=== PATIENT | female | born 1955 | race Caucasian/White ===

== ENCOUNTER 2017-07-18 20:51 | Inpatient (IN) | payer MEDICARE ==
[2017-07-18 22:01] LABS: ADD MAN DIFF? NO
[2017-07-18 22:03] LABS: BASOPHILS % 0.2 % (0.0-2.0); EOSINOPHILS % 0.1 % (0.0-7.0); HEMATOCRIT 35.4 % (37.0-47.0); HEMOGLOBIN 12.2 g/dl (12.0-16.0); LYMPHOCYTES # 0.7 10^3/ul (0.8-2.9); LYMPHOCYTES % 4.7 % (15.0-51.0); MEAN CORPUSCULAR HEMOGLOBIN 32.5 pg (29.0-33.0); MEAN CORPUSCULAR HGB CONC 34.5 g/dl (32.0-37.0); MEAN CORPUSCULAR VOLUME 94.4 fl (82.0-101.0); MEAN PLATELET VOLUME 9.9 fl (7.4-10.4); MONOCYTE # 1.1 10^3/ul (0.3-0.9); MONOCYTES % 7.7 % (0.0-11.0); NEUTROPHIL # 12.3 10^3/ul (1.6-7.5); NEUTROPHILS % 86.8 % (39.0-77.0); PLATELET COUNT 377 10^3/UL (140-415); RED BLOOD COUNT 3.75 10^6/ul (4.20-5.40); RED CELL DISTRIBUTION WIDTH 14.7 % (11.5-14.5)
[2017-07-18 22:03] LABS: WHITE BLOOD COUNT 14.2 10^3/ul (4.8-10.8)
[2017-07-18 22:21] LABS: BLOOD UREA NITROGEN 44 mg/dl (7-20); CALCIUM 8.1 mg/dl (8.4-10.2); CARBON DIOXIDE 28 mmol/L (21-31); CREATININE 1.18 mg/dl (0.44-1.00); GLUCOSE 113 mg/dl (70-220); SODIUM 140 mmol/L (135-144)
[2017-07-18 22:22] LABS: ANION GAP 18 (8-16); CHLORIDE 96 mmol/L (97-110)
[2017-07-18 22:23] LABS: POTASSIUM 2.3 mmol/L (3.5-5.1)
[2017-07-18 22:33] LABS: B-TYPE NATRIURETIC PEPTIDE 720 PG/ML (0-125); TROPONIN-I 0.085 ng/ml (0.00-0.12)
[2017-07-18] MEDS: POTASSIUM CHLORIDE (SR) 20 MEQ TAB PO (22:54)
[2017-07-18] MEDS ORDERED: POTASSIUM CHLORIDE 50 ML IVPB (23:00)
[2017-07-18] MEDS ORDERED: ACETAMINOPHEN 325 MG TAB PO (23:30)
[2017-07-18] MEDS ORDERED: ONDANSETRON 4 MG INJ IV (23:30)
[2017-07-18] MEDS: POTASSIUM CHLORIDE 30 MEQ in DEXTROSE 5% 250 ML IV (23:32)
[2017-07-19 13:41] LABS: ADD MAN DIFF? NO
[2017-07-19 13:43] LABS: BASOPHILS % 0.1 % (0.0-2.0); LYMPHOCYTES # 0.7 10^3/ul (0.8-2.9); LYMPHOCYTES % 6.7 % (15.0-51.0); MEAN CORPUSCULAR HEMOGLOBIN 32.4 pg (29.0-33.0); MEAN CORPUSCULAR HGB CONC 34.2 g/dl (32.0-37.0); MEAN CORPUSCULAR VOLUME 94.8 fl (82.0-101.0); MONOCYTES % 10.4 % (0.0-11.0); NEUTROPHIL # 8.1 10^3/ul (1.6-7.5); NEUTROPHILS % 82.4 % (39.0-77.0); PLATELET COUNT 381 10^3/UL (140-415); RED BLOOD COUNT 4.01 10^6/ul (4.20-5.40); RED CELL DISTRIBUTION WIDTH 14.8 % (11.5-14.5)
[2017-07-19 13:43] LABS: WHITE BLOOD COUNT 9.8 10^3/ul (4.8-10.8)
[2017-07-19 14:07] LABS: LACTIC ACID 2.1 mmol/L (0.5-2.0)
[2017-07-19] MEDS: DEXTROSE 5%-0.45% NACL 1,000 ML IV (14:31)
[2017-07-19] MEDS: BENAZEPRIL 10 MG TAB PO (20:44)
[2017-07-20] MEDS: BENAZEPRIL 10 MG TAB PO ×2 (00:50→09:40)
[2017-07-20 00:54] LABS: CREATINE KINASE 61 IU/L (23-200)
[2017-07-20 01:07] LABS: CK INDEX 4.3; CK-MB 2.63 ng/ml (0.0-2.4); TROPONIN-I 0.076 ng/ml (0.00-0.12)
[2017-07-20] MEDS ORDERED: PENDING SANTYL ORDER FOR WOUND CARE XX (02:00)
[2017-07-20] MEDS: hydrALAzine 20 MG INJ IV ×2 (04:09→16:09)
[2017-07-20 06:49] LABS: ADD MAN DIFF? NO
[2017-07-20 06:54] LABS: WHITE BLOOD COUNT 7.7 10^3/ul (4.8-10.8)
[2017-07-20 06:54] LABS: BASOPHILS % 0.3 % (0.0-2.0); HEMOGLOBIN 12.5 g/dl (12.0-16.0); LYMPHOCYTES # 0.7 10^3/ul (0.8-2.9); LYMPHOCYTES % 8.5 % (15.0-51.0); MEAN CORPUSCULAR HEMOGLOBIN 32.7 pg (29.0-33.0); MEAN CORPUSCULAR HGB CONC 34.7 g/dl (32.0-37.0); MEAN CORPUSCULAR VOLUME 94.2 fl (82.0-101.0); MEAN PLATELET VOLUME 10.1 fl (7.4-10.4); MONOCYTE # 0.8 10^3/ul (0.3-0.9); MONOCYTES % 10.8 % (0.0-11.0); NEUTROPHIL # 6.1 10^3/ul (1.6-7.5); NEUTROPHILS % 80.1 % (39.0-77.0); PLATELET COUNT 347 10^3/UL (140-415); RED BLOOD COUNT 3.82 10^6/ul (4.20-5.40)
[2017-07-20] MEDS: DEXTROSE 5%-0.45% NACL 1,000 ML IV ×2 (07:00→10:52)
[2017-07-20 07:09] LABS: ALANINE AMINOTRANSFERASE 57 IU/L (13-69); ALBUMIN 2.7 g/dl (3.3-4.9); ALBUMIN/GLOBULIN RATIO 0.84; ALKALINE PHOSPHATASE 352 IU/L (42-121); ANION GAP 14 (8-16); ASPARTATE AMINO TRANSFERASE 56 IU/L (15-46); BILIRUBIN,TOTAL 0.4 mg/dl (0.2-1.3); BLOOD UREA NITROGEN 31 mg/dl (7-20); CALCIUM 8.3 mg/dl (8.4-10.2); CARBON DIOXIDE 28 mmol/L (21-31); CHLORIDE 106 mmol/L (97-110); CREATININE 0.84 mg/dl (0.44-1.00); GLUCOSE 106 mg/dl (70-220); POTASSIUM 3.4 mmol/L (3.5-5.1); SODIUM 145 mmol/L (135-144); TOTAL PROTEIN 5.9 g/dl (6.1-8.1)
[2017-07-20 07:11] LABS: CHOL/HDL RATIO 4.8 RATIO; HDL CHOLESTEROL 23 mg/dl (35-98); LDL CHOLESTEROL,CALCULATED 71 mg/dl; TRIGLYCERIDES 87 mg/dl (0-149)
[2017-07-20 07:11] LABS: CHOLESTEROL 111 mg/dl (100-200)
[2017-07-20 07:15] LABS: CREATINE KINASE 60 IU/L (23-200); INR 1.15; PROTIME 14.9 Sec (11.9-14.9); PT RATIO 1.2
[2017-07-20 07:16] LABS: PARTIAL THROMBOPLASTIN TIME 42.1 Sec (25.0-35.0)
[2017-07-20 07:24] LABS: HEMOGLOBIN A1C 4.9 % (0-5.9)
[2017-07-20 07:42] LABS: CK INDEX 4.7; CK-MB 2.79 ng/ml (0.0-2.4); TROPONIN-I 0.077 ng/ml (0.00-0.12)
[2017-07-20 12:36] LABS: CREATINE KINASE 60 IU/L (23-200)
[2017-07-20 12:49] LABS: CK INDEX 4.1; CK-MB 2.43 ng/ml (0.0-2.4); TROPONIN-I 0.068 ng/ml (0.00-0.12)
[2017-07-20] MEDS: BENAZEPRIL 40 MG TAB PO (20:57)
[2017-07-20] MEDS: METOPROLOL 25 MG TAB PO (20:58)
[2017-07-20] MEDS: METOPROLOL 5 MG INJ IV (23:42)
[2017-07-21] MEDS: DEXTROSE 5%-0.45% NACL 1,000 ML IV ×2 (02:33→15:00)
[2017-07-21 08:07] LABS: ADD MAN DIFF? NO
[2017-07-21 08:12] LABS: BASOPHILS % 0.2 % (0.0-2.0); EOSINOPHILS % 0.1 % (0.0-7.0); HEMATOCRIT 38.7 % (37.0-47.0); HEMOGLOBIN 13.4 g/dl (12.0-16.0); LYMPHOCYTES # 0.8 10^3/ul (0.8-2.9); LYMPHOCYTES % 8.8 % (15.0-51.0); MEAN CORPUSCULAR HEMOGLOBIN 32.6 pg (29.0-33.0); MEAN CORPUSCULAR HGB CONC 34.6 g/dl (32.0-37.0); MEAN CORPUSCULAR VOLUME 94.2 fl (82.0-101.0); MEAN PLATELET VOLUME 10.1 fl (7.4-10.4); MONOCYTE # 1.3 10^3/ul (0.3-0.9); MONOCYTES % 13.9 % (0.0-11.0); NEUTROPHIL # 6.9 10^3/ul (1.6-7.5); NEUTROPHILS % 76.6 % (39.0-77.0); PLATELET COUNT 348 10^3/UL (140-415); RED BLOOD COUNT 4.11 10^6/ul (4.20-5.40); RED CELL DISTRIBUTION WIDTH 14.9 % (11.5-14.5)
[2017-07-21 08:29] LABS: ANION GAP 15 (8-16); BLOOD UREA NITROGEN 29 mg/dl (7-20); CALCIUM 8.3 mg/dl (8.4-10.2); CARBON DIOXIDE 25 mmol/L (21-31); CHLORIDE 112 mmol/L (97-110); CREATININE 0.96 mg/dl (0.44-1.00); GLUCOSE 95 mg/dl (70-220); POTASSIUM 3.2 mmol/L (3.5-5.1); SODIUM 149 mmol/L (135-144)
[2017-07-21] MEDS: BENAZEPRIL 40 MG TAB PO ×2 (09:46→21:38)
[2017-07-21] MEDS: ASPIRIN 81 MG TAB PO (09:46)
[2017-07-21] MEDS: METOPROLOL 25 MG TAB PO ×2 (09:47→21:38)
[2017-07-21] MEDS: DEXTROSE 5% 1,000 ML IV (17:46)
[2017-07-21] MEDS: POTASSIUM CHLORIDE 20 MEQ POWDER FOR ORAL SOLN NGT (21:39)
[2017-07-21] MEDS: LEVETIRACETAM 500 MG TAB PO (21:42)
[2017-07-21] MEDS: CARBAMAZEPINE 200 MG TAB PO (22:44)
[2017-07-21] MEDS: morphine 2 MG INJ IV (23:19)
[2017-07-22] MEDS: DEXTROSE 5% 250 ML IV ×5 (04:18→21:10)
[2017-07-22] MEDS: ASPIRIN 81 MG TAB PO (09:19)
[2017-07-22] MEDS: BENAZEPRIL 40 MG TAB PO ×2 (09:19→21:13)
[2017-07-22] MEDS: CARBAMAZEPINE 200 MG TAB PO ×3 (09:19→21:12)
[2017-07-22] MEDS: LEVETIRACETAM 500 MG TAB PO ×2 (09:19→21:12)
[2017-07-22] MEDS: METOPROLOL 25 MG TAB PO ×2 (09:20→21:13)
[2017-07-22 09:48] LABS: ANION GAP 13 (8-16); BLOOD UREA NITROGEN 33 mg/dl (7-20); CALCIUM 7.8 mg/dl (8.4-10.2); CARBON DIOXIDE 24 mmol/L (21-31); CHLORIDE 104 mmol/L (97-110); CREATININE 1.08 mg/dl (0.44-1.00); GLUCOSE 88 mg/dl (70-220); POTASSIUM 3.2 mmol/L (3.5-5.1); SODIUM 138 mmol/L (135-144)
[2017-07-22 09:54] LABS: CARBAMAZEPINE (TEGRETOL) 9.8 ug/ml (8.0-12.0)
[2017-07-22] MEDS: POTASSIUM CHLORIDE 20 MEQ POWDER FOR ORAL SOLN PO (16:58)
[2017-07-22] MEDS ORDERED: VANCOMYCIN IV PER PHARMACY XX (17:00)
[2017-07-22] MEDS: VANCOMYCIN 1 GM 250 ML IVPB (18:03)
[2017-07-22] MEDS: LEVOFLOXACIN 500 MG TAB PO (18:03)
[2017-07-23] MEDS: DEXTROSE 5% 250 ML IV ×3 (01:20→09:08)
[2017-07-23] MEDS: LEVOFLOXACIN 500 MG TAB PO (06:03)
[2017-07-23] MEDS: ASPIRIN 81 MG TAB PO (09:07)
[2017-07-23] MEDS: CARBAMAZEPINE 200 MG TAB PO ×3 (09:07→20:13)
[2017-07-23] MEDS: LEVETIRACETAM 500 MG TAB PO ×2 (09:07→20:09)
[2017-07-23] MEDS: BENAZEPRIL 40 MG TAB PO ×2 (09:08→20:13)
[2017-07-23] MEDS: METOPROLOL 25 MG TAB PO ×2 (09:08→20:10)
[2017-07-23 09:20] LABS: ADD MAN DIFF? NO
[2017-07-23 09:28] LABS: BASOPHILS % 0.3 % (0.0-2.0); EOSINOPHILS % 0.5 % (0.0-7.0); HEMOGLOBIN 12.2 g/dl (12.0-16.0); LYMPHOCYTES # 0.9 10^3/ul (0.8-2.9); LYMPHOCYTES % 14.6 % (15.0-51.0); MEAN CORPUSCULAR HEMOGLOBIN 32.1 pg (29.0-33.0); MEAN CORPUSCULAR HGB CONC 33.9 g/dl (32.0-37.0); MEAN CORPUSCULAR VOLUME 94.7 fl (82.0-101.0); MEAN PLATELET VOLUME 10.3 fl (7.4-10.4); MONOCYTE # 0.8 10^3/ul (0.3-0.9); MONOCYTES % 13.9 % (0.0-11.0); NEUTROPHIL # 4.2 10^3/ul (1.6-7.5); PLATELET COUNT 271 10^3/UL (140-415); RED CELL DISTRIBUTION WIDTH 14.5 % (11.5-14.5)
[2017-07-23 09:45] LABS: ANION GAP 14 (8-16); BLOOD UREA NITROGEN 35 mg/dl (7-20); CALCIUM 7.7 mg/dl (8.4-10.2); CARBON DIOXIDE 26 mmol/L (21-31); CHLORIDE 105 mmol/L (97-110); CREATININE 1.21 mg/dl (0.44-1.00); GLUCOSE 79 mg/dl (70-220); POTASSIUM 4.3 mmol/L (3.5-5.1); SODIUM 141 mmol/L (135-144)
[2017-07-23 12:03] LABS: ADD MAN DIFF? NO
[2017-07-23 12:09] LABS: INR 1.16; PT RATIO 1.2
[2017-07-23 12:10] LABS: PARTIAL THROMBOPLASTIN TIME 35.4 Sec (25.0-35.0)
[2017-07-23 12:11] LABS: ALANINE AMINOTRANSFERASE 34 IU/L (13-69); ALBUMIN 2.7 g/dl (3.3-4.9); ALBUMIN/GLOBULIN RATIO 0.96; ALKALINE PHOSPHATASE 291 IU/L (42-121); ANION GAP 16 (8-16); ASPARTATE AMINO TRANSFERASE 24 IU/L (15-46); BILIRUBIN,INDIRECT 0.2 mg/dl (0-1.1); BILIRUBIN,TOTAL 0.2 mg/dl (0.2-1.3); BLOOD UREA NITROGEN 33 mg/dl (7-20); CALCIUM 8.2 mg/dl (8.4-10.2); CARBON DIOXIDE 27 mmol/L (21-31); CHLORIDE 104 mmol/L (97-110); CREATININE 1.22 mg/dl (0.44-1.00); GLUCOSE 92 mg/dl (70-220); HDL CHOLESTEROL 20 mg/dl (35-98); POTASSIUM 4.6 mmol/L (3.5-5.1); SODIUM 142 mmol/L (135-144); TOTAL PROTEIN 5.5 g/dl (6.1-8.1); TRIGLYCERIDES 112 mg/dl (0-149)
[2017-07-23 12:19] LABS: CHOL/HDL RATIO 4.7 RATIO; LDL CHOLESTEROL,CALCULATED 53 mg/dl
[2017-07-23 12:21] LABS: BASOPHILS % 0.4 % (0.0-2.0); EOSINOPHILS % 0.3 % (0.0-7.0); HEMATOCRIT 36.7 % (37.0-47.0); HEMOGLOBIN 12.5 g/dl (12.0-16.0); LYMPHOCYTES % 14.4 % (15.0-51.0); MEAN CORPUSCULAR HEMOGLOBIN 32.5 pg (29.0-33.0); MEAN CORPUSCULAR HGB CONC 34.1 g/dl (32.0-37.0); MEAN CORPUSCULAR VOLUME 95.3 fl (82.0-101.0); MEAN PLATELET VOLUME 10.3 fl (7.4-10.4); MONOCYTES % 14.5 % (0.0-11.0); NEUTROPHIL # 4.9 10^3/ul (1.6-7.5); PLATELET COUNT 307 10^3/UL (140-415); RED BLOOD COUNT 3.85 10^6/ul (4.20-5.40); RED CELL DISTRIBUTION WIDTH 14.5 % (11.5-14.5)
[2017-07-23 12:30] LABS: CHOLESTEROL 95 mg/dl (100-200)
[2017-07-23 15:15] LABS: ADD MAN DIFF? NO
[2017-07-23 15:17] LABS: WHITE BLOOD COUNT 7.5 10^3/ul (4.8-10.8)
[2017-07-23 15:17] LABS: BASOPHILS % 0.4 % (0.0-2.0); EOSINOPHILS % 0.3 % (0.0-7.0); HEMATOCRIT 36.6 % (37.0-47.0); HEMOGLOBIN 12.7 g/dl (12.0-16.0); LYMPHOCYTES % 13.1 % (15.0-51.0); MEAN CORPUSCULAR HEMOGLOBIN 32.6 pg (29.0-33.0); MEAN CORPUSCULAR HGB CONC 34.7 g/dl (32.0-37.0); MEAN CORPUSCULAR VOLUME 93.8 fl (82.0-101.0); MEAN PLATELET VOLUME 10.2 fl (7.4-10.4); MONOCYTE # 0.9 10^3/ul (0.3-0.9); MONOCYTES % 11.9 % (0.0-11.0); NEUTROPHIL # 5.6 10^3/ul (1.6-7.5); NEUTROPHILS % 73.8 % (39.0-77.0); PLATELET COUNT 291 10^3/UL (140-415); RED CELL DISTRIBUTION WIDTH 14.6 % (11.5-14.5)
[2017-07-23] MEDS: VANCOMYCIN 750 MG in DEXTROSE 5% 150 ML IVPB (18:11)
[2017-07-23] MEDS: ONDANSETRON 4 MG INJ IV (22:18)
[2017-07-24] MEDS ORDERED: COLLAGENASE 30 GM TUBE TOP (00:30)
[2017-07-24 07:46] LABS: ADD MAN DIFF? NO
[2017-07-24 07:50] LABS: BASOPHILS % 0.3 % (0.0-2.0); EOSINOPHILS % 0.2 % (0.0-7.0); HEMATOCRIT 35.2 % (37.0-47.0); LYMPHOCYTES % 15.4 % (15.0-51.0); MEAN CORPUSCULAR HGB CONC 34.1 g/dl (32.0-37.0); MEAN CORPUSCULAR VOLUME 93.9 fl (82.0-101.0); MEAN PLATELET VOLUME 10.3 fl (7.4-10.4); MONOCYTE # 0.8 10^3/ul (0.3-0.9); MONOCYTES % 12.2 % (0.0-11.0); NEUTROPHIL # 4.7 10^3/ul (1.6-7.5); NEUTROPHILS % 71.1 % (39.0-77.0); PLATELET COUNT 289 10^3/UL (140-415); RED BLOOD COUNT 3.75 10^6/ul (4.20-5.40); RED CELL DISTRIBUTION WIDTH 14.4 % (11.5-14.5)
[2017-07-24 07:50] LABS: WHITE BLOOD COUNT 6.6 10^3/ul (4.8-10.8)
[2017-07-24 08:23] LABS: CARBAMAZEPINE (TEGRETOL) 8.9 ug/ml (8.0-12.0)
[2017-07-24 08:27] LABS: ANION GAP 15 (8-16); BLOOD UREA NITROGEN 34 mg/dl (7-20); CALCIUM 8.4 mg/dl (8.4-10.2); CARBON DIOXIDE 26 mmol/L (21-31); CHLORIDE 106 mmol/L (97-110); CREATININE 1.09 mg/dl (0.44-1.00); GLUCOSE 86 mg/dl (70-220); POTASSIUM 4.4 mmol/L (3.5-5.1); SODIUM 143 mmol/L (135-144)
[2017-07-24] MEDS: LEVETIRACETAM 500 MG TAB PO ×2 (08:46→20:11)
[2017-07-24] MEDS: CARBAMAZEPINE 200 MG TAB PO ×3 (08:46→20:11)
[2017-07-24] MEDS: COLLAGENASE 30 GM TUBE TOP (08:46)
[2017-07-24] MEDS: ASPIRIN 81 MG TAB PO (08:47)
[2017-07-24] MEDS: BENAZEPRIL 40 MG TAB PO ×2 (08:47→20:11)
[2017-07-24] MEDS: METOPROLOL 25 MG TAB PO ×2 (08:48→20:11)
[2017-07-24] MEDS: SOD CHLORIDE 0.9% 100 ML (11:12)
[2017-07-24] MEDS: IODIXANOL LOCM 100 ML BTL (11:13)
[2017-07-24] MEDS: FLUCONAZOLE 100 MG TAB PO (17:13)
[2017-07-24] MEDS: VANCOMYCIN 750 MG in DEXTROSE 5% 150 ML IVPB (17:19)
[2017-07-25] MEDS: LEVOFLOXACIN 500 MG TAB PO (05:29)
[2017-07-25 07:00] LABS: ADD MAN DIFF? NO
[2017-07-25 07:03] LABS: BASOPHILS % 0.3 % (0.0-2.0); EOSINOPHILS % 0.5 % (0.0-7.0); HEMOGLOBIN 11.5 g/dl (12.0-16.0); LYMPHOCYTES # 0.8 10^3/ul (0.8-2.9); MEAN CORPUSCULAR HEMOGLOBIN 32.2 pg (29.0-33.0); MEAN CORPUSCULAR HGB CONC 34.8 g/dl (32.0-37.0); MEAN CORPUSCULAR VOLUME 92.4 fl (82.0-101.0); MEAN PLATELET VOLUME 10.2 fl (7.4-10.4); MONOCYTE # 0.7 10^3/ul (0.3-0.9); MONOCYTES % 11.4 % (0.0-11.0); NEUTROPHIL # 4.4 10^3/ul (1.6-7.5); NEUTROPHILS % 73.3 % (39.0-77.0); PLATELET COUNT 280 10^3/UL (140-415); RED BLOOD COUNT 3.57 10^6/ul (4.20-5.40); RED CELL DISTRIBUTION WIDTH 14.2 % (11.5-14.5)
[2017-07-25 07:03] LABS: WHITE BLOOD COUNT 5.9 10^3/ul (4.8-10.8)
[2017-07-25 07:22] LABS: ANION GAP 15 (8-16); BLOOD UREA NITROGEN 25 mg/dl (7-20); CARBON DIOXIDE 27 mmol/L (21-31); CHLORIDE 105 mmol/L (97-110); CREATININE 0.88 mg/dl (0.44-1.00); GLUCOSE 87 mg/dl (70-220); POTASSIUM 4.2 mmol/L (3.5-5.1); SODIUM 143 mmol/L (135-144)
[2017-07-25] MEDS: FLUCONAZOLE 100 MG TAB PO (08:45)
[2017-07-25] MEDS: ASPIRIN 81 MG TAB PO (08:45)
[2017-07-25] MEDS: METOPROLOL 25 MG TAB PO ×2 (08:45→21:02)
[2017-07-25] MEDS: LEVETIRACETAM 500 MG TAB PO ×2 (08:45→21:02)
[2017-07-25] MEDS: BENAZEPRIL 40 MG TAB PO ×2 (08:46→21:02)
[2017-07-25] MEDS: COLLAGENASE 30 GM TUBE TOP (08:46)
[2017-07-25] MEDS: CARBAMAZEPINE 200 MG TAB PO ×3 (08:46→21:02)
[2017-07-25] MEDS: VANCOMYCIN 750 MG in DEXTROSE 5% 150 ML IVPB (18:13)
[2017-07-26 06:28] LABS: ANION GAP 11 (8-16); BLOOD UREA NITROGEN 16 mg/dl (7-20); CALCIUM 7.7 mg/dl (8.4-10.2); CARBON DIOXIDE 29 mmol/L (21-31); CHLORIDE 105 mmol/L (97-110); GLUCOSE 86 mg/dl (70-220); POTASSIUM 3.6 mmol/L (3.5-5.1); SODIUM 141 mmol/L (135-144)
[2017-07-26] MEDS: ASPIRIN 81 MG TAB PO (08:38)
[2017-07-26] MEDS: LEVETIRACETAM 500 MG TAB PO ×2 (08:39→20:41)
[2017-07-26] MEDS: METOPROLOL 25 MG TAB PO ×2 (08:39→20:42)
[2017-07-26] MEDS: CARBAMAZEPINE 200 MG TAB PO ×3 (08:40→20:41)
[2017-07-26] MEDS: FLUCONAZOLE 100 MG TAB PO (08:40)
[2017-07-26] MEDS: BENAZEPRIL 40 MG TAB PO ×2 (08:40→20:41)
[2017-07-26] MEDS: COLLAGENASE 30 GM TUBE TOP (08:41)
[2017-07-26] MEDS: VANCOMYCIN 1 GM 250 ML IVPB (16:55)
[2017-07-27] MEDS: LEVOFLOXACIN 500 MG TAB PO (05:44)
[2017-07-27] MEDS: LEVETIRACETAM 500 MG TAB PO ×2 (08:50→21:58)
[2017-07-27] MEDS: FLUCONAZOLE 100 MG TAB PO (08:50)
[2017-07-27] MEDS: CARBAMAZEPINE 200 MG TAB PO ×3 (08:50→21:58)
[2017-07-27] MEDS: METOPROLOL 25 MG TAB PO ×2 (08:50→21:58)
[2017-07-27] MEDS: BENAZEPRIL 40 MG TAB PO ×2 (08:51→21:57)
[2017-07-27] MEDS: COLLAGENASE 30 GM TUBE TOP (08:51)
[2017-07-27] MEDS: ASPIRIN 81 MG TAB PO (08:52)
[2017-07-27 08:58] LABS: ADD MAN DIFF? NO
[2017-07-27 09:09] LABS: BASOPHILS % 0.4 % (0.0-2.0); EOSINOPHILS # 0.1 10^3/ul (0.0-0.5); EOSINOPHILS % 0.9 % (0.0-7.0); HEMATOCRIT 31.3 % (37.0-47.0); HEMOGLOBIN 10.9 g/dl (12.0-16.0); LYMPHOCYTES % 19.3 % (15.0-51.0); MEAN CORPUSCULAR HEMOGLOBIN 32.6 pg (29.0-33.0); MEAN CORPUSCULAR HGB CONC 34.8 g/dl (32.0-37.0); MEAN CORPUSCULAR VOLUME 93.7 fl (82.0-101.0); MEAN PLATELET VOLUME 10.4 fl (7.4-10.4); MONOCYTE # 0.6 10^3/ul (0.3-0.9); MONOCYTES % 11.1 % (0.0-11.0); NEUTROPHIL # 3.6 10^3/ul (1.6-7.5); NEUTROPHILS % 67.7 % (39.0-77.0); PLATELET COUNT 268 10^3/UL (140-415); RED BLOOD COUNT 3.34 10^6/ul (4.20-5.40); RED CELL DISTRIBUTION WIDTH 14.5 % (11.5-14.5)
[2017-07-27 09:09] LABS: WHITE BLOOD COUNT 5.3 10^3/ul (4.8-10.8)
[2017-07-27 09:32] LABS: ANION GAP 14 (8-16); BLOOD UREA NITROGEN 12 mg/dl (7-20); CALCIUM 7.8 mg/dl (8.4-10.2); CARBON DIOXIDE 29 mmol/L (21-31); CHLORIDE 102 mmol/L (97-110); CREATININE 0.79 mg/dl (0.44-1.00); GLUCOSE 87 mg/dl (70-220); POTASSIUM 3.7 mmol/L (3.5-5.1); SODIUM 141 mmol/L (135-144)
[2017-07-27] MEDS: AMOXICILLIN 500 MG CAP PO (21:58)
[2017-07-28] MEDS: AMOXICILLIN 500 MG CAP PO ×3 (06:35→21:39)
[2017-07-28] MEDS: ASPIRIN 81 MG TAB PO (09:56)
[2017-07-28] MEDS: METOPROLOL 25 MG TAB PO ×2 (09:57→21:40)
[2017-07-28] MEDS: LEVETIRACETAM 500 MG TAB PO ×2 (09:57→21:39)
[2017-07-28] MEDS: FLUCONAZOLE 100 MG TAB PO (09:57)
[2017-07-28] MEDS: BENAZEPRIL 40 MG TAB PO ×2 (09:57→21:39)
[2017-07-28] MEDS: CARBAMAZEPINE 200 MG TAB PO ×3 (09:57→21:39)
[2017-07-28] MEDS: COLLAGENASE 30 GM TUBE TOP (09:58)
[2017-07-28] MEDS: morphine LIQ (10 MG/5 ML) CUP PO (21:53)
[2017-07-29] MEDS: AMOXICILLIN 500 MG CAP PO ×3 (06:21→21:38)
[2017-07-29 07:33] LABS: ADD MAN DIFF? NO
[2017-07-29 07:46] LABS: BASOPHILS % 0.4 % (0.0-2.0); EOSINOPHILS # 0.1 10^3/ul (0.0-0.5); EOSINOPHILS % 0.9 % (0.0-7.0); HEMATOCRIT 29.1 % (37.0-47.0); LYMPHOCYTES # 1.1 10^3/ul (0.8-2.9); LYMPHOCYTES % 15.8 % (15.0-51.0); MEAN CORPUSCULAR HEMOGLOBIN 32.2 pg (29.0-33.0); MEAN CORPUSCULAR HGB CONC 34.4 g/dl (32.0-37.0); MEAN CORPUSCULAR VOLUME 93.6 fl (82.0-101.0); MEAN PLATELET VOLUME 10.6 fl (7.4-10.4); MONOCYTE # 0.6 10^3/ul (0.3-0.9); MONOCYTES % 8.6 % (0.0-11.0); NEUTROPHILS % 73.7 % (39.0-77.0); PLATELET COUNT 277 10^3/UL (140-415); RED BLOOD COUNT 3.11 10^6/ul (4.20-5.40); RED CELL DISTRIBUTION WIDTH 14.3 % (11.5-14.5)
[2017-07-29 07:46] LABS: WHITE BLOOD COUNT 6.8 10^3/ul (4.8-10.8)
[2017-07-29 08:05] LABS: ANION GAP 11 (8-16); BLOOD UREA NITROGEN 10 mg/dl (7-20); CALCIUM 7.7 mg/dl (8.4-10.2); CARBON DIOXIDE 30 mmol/L (21-31); CHLORIDE 99 mmol/L (97-110); CREATININE 0.62 mg/dl (0.44-1.00); GLUCOSE 88 mg/dl (70-220); POTASSIUM 3.7 mmol/L (3.5-5.1); SODIUM 136 mmol/L (135-144)
[2017-07-29] MEDS: ASPIRIN 81 MG TAB PO (08:24)
[2017-07-29] MEDS: BENAZEPRIL 40 MG TAB PO ×2 (08:24→21:39)
[2017-07-29] MEDS: FLUCONAZOLE 100 MG TAB PO (08:24)
[2017-07-29] MEDS: LEVETIRACETAM 500 MG TAB PO ×2 (08:25→21:40)
[2017-07-29] MEDS: METOPROLOL 25 MG TAB PO ×2 (08:25→21:40)
[2017-07-29] MEDS: CARBAMAZEPINE 200 MG TAB PO ×3 (08:25→21:38)
[2017-07-29] MEDS: COLLAGENASE 30 GM TUBE TOP (08:26)
[2017-07-29] MEDS: DOCUSATE SODIUM 100 MG CAP PO (21:38)
[2017-07-29] MEDS: morphine LIQ (10 MG/5 ML) CUP PO (22:51)
[2017-07-30] MEDS: AMOXICILLIN 500 MG CAP PO ×3 (06:48→21:10)
[2017-07-30] MEDS: ASPIRIN 81 MG TAB PO (08:17)
[2017-07-30] MEDS: FLUCONAZOLE 100 MG TAB PO (08:17)
[2017-07-30] MEDS: METOPROLOL 25 MG TAB PO ×2 (08:17→21:12)
[2017-07-30] MEDS: CARBAMAZEPINE 200 MG TAB PO ×3 (08:17→21:10)
[2017-07-30] MEDS: BENAZEPRIL 40 MG TAB PO ×2 (08:18→21:11)
[2017-07-30] MEDS: LEVETIRACETAM 500 MG TAB PO ×2 (08:18→21:11)
[2017-07-30] MEDS: DOCUSATE SODIUM 100 MG CAP PO ×2 (08:18→21:10)
[2017-07-30] MEDS: COLLAGENASE 30 GM TUBE TOP (08:19)
[2017-07-30 08:47] LABS: ADD MAN DIFF? NO
[2017-07-30 08:52] LABS: BASOPHILS % 0.3 % (0.0-2.0); EOSINOPHILS % 0.5 % (0.0-7.0); HEMATOCRIT 32.1 % (37.0-47.0); LYMPHOCYTES # 0.9 10^3/ul (0.8-2.9); LYMPHOCYTES % 12.1 % (15.0-51.0); MEAN CORPUSCULAR HEMOGLOBIN 32.2 pg (29.0-33.0); MEAN CORPUSCULAR HGB CONC 34.3 g/dl (32.0-37.0); MEAN CORPUSCULAR VOLUME 93.9 fl (82.0-101.0); MEAN PLATELET VOLUME 9.9 fl (7.4-10.4); MONOCYTE # 0.6 10^3/ul (0.3-0.9); MONOCYTES % 8.5 % (0.0-11.0); NEUTROPHIL # 5.7 10^3/ul (1.6-7.5); NEUTROPHILS % 77.7 % (39.0-77.0); PLATELET COUNT 310 10^3/UL (140-415); RED BLOOD COUNT 3.42 10^6/ul (4.20-5.40); RED CELL DISTRIBUTION WIDTH 14.1 % (11.5-14.5)
[2017-07-30 08:52] LABS: WHITE BLOOD COUNT 7.4 10^3/ul (4.8-10.8)
[2017-07-30 09:15] LABS: ANION GAP 12 (8-16); BLOOD UREA NITROGEN 8 mg/dl (7-20); CALCIUM 8.1 mg/dl (8.4-10.2); CARBON DIOXIDE 31 mmol/L (21-31); CHLORIDE 95 mmol/L (97-110); CREATININE 0.58 mg/dl (0.44-1.00); GLUCOSE 86 mg/dl (70-220); POTASSIUM 3.7 mmol/L (3.5-5.1); SODIUM 134 mmol/L (135-144)
[2017-07-30] MEDS: REGADENOSON 0.4 MG/5 ML SYG (13:59)
[2017-07-30] MEDS: morphine LIQ (10 MG/5 ML) CUP PO (14:23)
[2017-07-30] MEDS: LORATADINE 10 MG TAB PO (14:33)
[2017-07-31] MEDS: AMOXICILLIN 500 MG CAP PO ×3 (06:15→21:19)
[2017-07-31] MEDS: DOCUSATE SODIUM 100 MG CAP PO ×2 (08:28→20:29)
[2017-07-31] MEDS: LEVETIRACETAM 500 MG TAB PO ×2 (08:29→20:30)
[2017-07-31] MEDS: BENAZEPRIL 40 MG TAB PO ×2 (08:29→20:30)
[2017-07-31] MEDS: LORATADINE 10 MG TAB PO (08:30)
[2017-07-31] MEDS: CARBAMAZEPINE 200 MG TAB PO ×3 (08:30→20:30)
[2017-07-31] MEDS: FLUCONAZOLE 100 MG TAB PO (08:30)
[2017-07-31] MEDS: METOPROLOL 25 MG TAB PO ×2 (08:31→20:30)
[2017-07-31] MEDS: COLLAGENASE 30 GM TUBE TOP (08:31)
[2017-07-31] MEDS: ASPIRIN 81 MG TAB PO (08:31)
[2017-07-31] MEDS: morphine LIQ (10 MG/5 ML) CUP PO (19:32)
[2017-08-01] MEDS: AMOXICILLIN 500 MG CAP PO ×3 (05:40→21:01)
[2017-08-01] MEDS: ASPIRIN 81 MG TAB PO (08:42)
[2017-08-01] MEDS: FLUCONAZOLE 100 MG TAB PO (08:42)
[2017-08-01] MEDS: LEVETIRACETAM 500 MG TAB PO ×2 (08:43→21:01)
[2017-08-01] MEDS: METOPROLOL 25 MG TAB PO ×2 (08:44→21:00)
[2017-08-01] MEDS: BENAZEPRIL 40 MG TAB PO ×2 (08:44→21:01)
[2017-08-01] MEDS: CARBAMAZEPINE 200 MG TAB PO ×3 (08:45→21:01)
[2017-08-01] MEDS: DOCUSATE SODIUM 100 MG CAP PO ×2 (08:45→21:01)
[2017-08-01] MEDS: LORATADINE 10 MG TAB PO (08:45)
[2017-08-01] MEDS: COLLAGENASE 30 GM TUBE TOP (08:46)
[2017-08-01 11:44] LABS: ADD MAN DIFF? NO
[2017-08-01 11:50] LABS: WHITE BLOOD COUNT 8.9 10^3/ul (4.8-10.8)
[2017-08-01 11:50] LABS: BASOPHILS % 0.2 % (0.0-2.0); EOSINOPHILS % 0.3 % (0.0-7.0); HEMOGLOBIN 9.7 g/dl (12.0-16.0); LYMPHOCYTES # 0.9 10^3/ul (0.8-2.9); LYMPHOCYTES % 9.6 % (15.0-51.0); MEAN CORPUSCULAR HEMOGLOBIN 32.3 pg (29.0-33.0); MEAN CORPUSCULAR HGB CONC 34.6 g/dl (32.0-37.0); MEAN CORPUSCULAR VOLUME 93.3 fl (82.0-101.0); MEAN PLATELET VOLUME 9.6 fl (7.4-10.4); MONOCYTE # 0.8 10^3/ul (0.3-0.9); MONOCYTES % 9.4 % (0.0-11.0); NEUTROPHIL # 7.1 10^3/ul (1.6-7.5); NEUTROPHILS % 79.9 % (39.0-77.0); PLATELET COUNT 382 10^3/UL (140-415); RED CELL DISTRIBUTION WIDTH 14.2 % (11.5-14.5)
[2017-08-01 12:16] LABS: PROTIME 13.3 Sec (11.9-14.9)
[2017-08-01 12:19] LABS: ANION GAP 9 (8-16); BLOOD UREA NITROGEN 12 mg/dl (7-20); CALCIUM 8.1 mg/dl (8.4-10.2); CARBON DIOXIDE 33 mmol/L (21-31); CHLORIDE 95 mmol/L (97-110); CREATININE 0.62 mg/dl (0.44-1.00); GLUCOSE 82 mg/dl (70-220); POTASSIUM 3.9 mmol/L (3.5-5.1); SODIUM 133 mmol/L (135-144)
[2017-08-01 12:24] LABS: THROMBIN TIME 13.9 SEC (13.8-19.1)
[2017-08-01 12:36] LABS: PLATELET COUNT 382 10^3/UL (140-440)
[2017-08-01] MEDS: OXYCODONE/ACETAMINOPHEN (5/325) TAB PO (20:59)
[2017-08-02] MEDS: FLUCONAZOLE 100 MG TAB PO (08:20)
[2017-08-02] MEDS: METOPROLOL 25 MG TAB PO ×2 (08:21→21:09)
[2017-08-02] MEDS: LEVETIRACETAM 500 MG TAB PO ×2 (08:22→21:08)
[2017-08-02] MEDS: DOCUSATE SODIUM 100 MG CAP PO ×2 (08:22→21:08)
[2017-08-02] MEDS: LORATADINE 10 MG TAB PO (08:22)
[2017-08-02] MEDS: BENAZEPRIL 40 MG TAB PO ×2 (08:22→21:08)
[2017-08-02] MEDS: ASPIRIN 81 MG TAB PO (08:22)
[2017-08-02] MEDS: CARBAMAZEPINE 200 MG TAB PO ×3 (09:37→21:08)
[2017-08-02] MEDS: COLLAGENASE 30 GM TUBE TOP (10:42)
[2017-08-02] MEDS: OXYCODONE/ACETAMINOPHEN (5/325) TAB PO ×2 (12:37→21:12)
[2017-08-02] MEDS: AMOXICILLIN 250 MG CAP PO ×2 (14:02→21:09)
[2017-08-03] MEDS: AMOXICILLIN 250 MG CAP PO ×3 (05:31→21:32)
[2017-08-03 05:42] LABS: ADD MAN DIFF? NO
[2017-08-03 05:49] LABS: WHITE BLOOD COUNT 5.4 10^3/ul (4.8-10.8)
[2017-08-03 05:49] LABS: BASOPHILS % 0.6 % (0.0-2.0); EOSINOPHILS # 0.1 10^3/ul (0.0-0.5); EOSINOPHILS % 2.2 % (0.0-7.0); HEMATOCRIT 26.2 % (37.0-47.0); HEMOGLOBIN 9.1 g/dl (12.0-16.0); LYMPHOCYTES # 1.1 10^3/ul (0.8-2.9); LYMPHOCYTES % 20.7 % (15.0-51.0); MEAN CORPUSCULAR HEMOGLOBIN 32.6 pg (29.0-33.0); MEAN CORPUSCULAR HGB CONC 34.7 g/dl (32.0-37.0); MEAN CORPUSCULAR VOLUME 93.9 fl (82.0-101.0); MEAN PLATELET VOLUME 8.9 fl (7.4-10.4); MONOCYTE # 0.6 10^3/ul (0.3-0.9); MONOCYTES % 10.1 % (0.0-11.0); NEUTROPHIL # 3.6 10^3/ul (1.6-7.5); NEUTROPHILS % 65.7 % (39.0-77.0); PLATELET COUNT 380 10^3/UL (140-415); RED BLOOD COUNT 2.79 10^6/ul (4.20-5.40)
[2017-08-03 06:14] LABS: ANION GAP 10 (8-16); BLOOD UREA NITROGEN 11 mg/dl (7-20); CALCIUM 8.1 mg/dl (8.4-10.2); CARBON DIOXIDE 31 mmol/L (21-31); CHLORIDE 96 mmol/L (97-110); GLUCOSE 85 mg/dl (70-220); SODIUM 133 mmol/L (135-144)
[2017-08-03] MEDS: ASPIRIN 81 MG TAB PO (08:04)
[2017-08-03] MEDS: DOCUSATE SODIUM 100 MG CAP PO ×2 (08:05→20:57)
[2017-08-03] MEDS: BENAZEPRIL 40 MG TAB PO ×2 (08:05→20:56)
[2017-08-03] MEDS: METOPROLOL 25 MG TAB PO ×2 (08:06→20:57)
[2017-08-03] MEDS: CARBAMAZEPINE 200 MG TAB PO ×3 (08:06→20:55)
[2017-08-03] MEDS: FLUCONAZOLE 100 MG TAB PO (08:06)
[2017-08-03] MEDS: LEVETIRACETAM 500 MG TAB PO ×2 (08:06→20:55)
[2017-08-03] MEDS: LORATADINE 10 MG TAB PO (08:07)
[2017-08-03] MEDS: OXYCODONE/ACETAMINOPHEN (5/325) TAB PO ×2 (08:13→20:57)
== END 2017-08-03 22:05 | DRG 641 ==
LOC: TEL 23:26 → E/R 20:51 → TEL 07-19 17:37 → MS2 08-01 22:01
PROC: C22G1ZZ Tomographic (Tomo) Nuclear Medicine Imaging of Myocardium using Technetium 99m (Tc-99m) (ICD-10-PCS; principal; 2017-07-30)
PROC: 4A02XM4 Measurement of Cardiac Total Activity, External Approach (ICD-10-PCS; 2017-07-30)
PROC: 3E033HZ Introduction of Radioactive Substance into Peripheral Vein, Percutaneous Approach (ICD-10-PCS; 2017-07-30)
DX: E87.6 Hypokalemia (principal); N17.9 Acute kidney failure, unspecified; E44.0 Moderate protein-calorie malnutrition; Z68.1 Body mass index [BMI] 19.9 or less, adult; G45.9 Transient cerebral ischemic attack, unspecified; T81.4XXA Infection following a procedure, initial encounter; E87.0 Hyperosmolality and hypernatremia; G40.909 Epilepsy, unspecified, not intractable, without status epilepticus; M54.30 Sciatica, unspecified side; Z91.81 History of falling; M25.551 Pain in right hip; F17.200 Nicotine dependence, unspecified, uncomplicated; M06.9 Rheumatoid arthritis, unspecified; D72.829 Elevated white blood cell count, unspecified; G89.29 Other chronic pain; M62.838 Other muscle spasm; I11.9 Hypertensive heart disease without heart failure; R19.7 Diarrhea, unspecified; Z96.642 Presence of left artificial hip joint; Y83.9 Surgical procedure, unspecified as the cause of abnormal reaction of the patient, or of later complication, without mention of misadventure at the time of the procedure; R47.81 Slurred speech; R47.1 Dysarthria and anarthria; R27.0 Ataxia, unspecified; R79.9 Abnormal finding of blood chemistry, unspecified; S22.39XD Fracture of one rib, unspecified side, subsequent encounter for fracture with routine healing; W19.XXXD Unspecified fall, subsequent encounter; R94.31 Abnormal electrocardiogram [ECG] [EKG]; I49.9 Cardiac arrhythmia, unspecified
CPT/HCPCS: 36415; 70450; 70496; 70498; 71045; 72170; 73510; 78452; 80048; 80053; 80061; 80156; 80202; 82550; 82553; 82962; 83036; 83605; 83880; 84443; 84484; 85025; 85049; 85610; 85670; 85730; 87040; 87070; 87400; 92522; 92610; 93005; 93017; 93306; 95819; 96374; 97110; 97116; 97162; 97164; 97530; 99291-25

== ENCOUNTER 2018-09-16 18:10 | Inpatient (IN) | payer MEDICARE ==
[2018-09-16] MEDS: HYDROCODONE/APAP (5/325) TAB PO (21:17)
[2018-09-16] MEDS: KETOROLAC 30 MG INJ IM (21:17)
[2018-09-16] MEDS: PROPOFOL 200 MG INJ IV (21:37)
[2018-09-16] MEDS: morphine 4 MG/ML VIAL IV (22:45)
[2018-09-16] MEDS: ONDANSETRON 4 MG INJ IV (22:45)
[2018-09-16 23:18] LABS: ADD MAN DIFF? NO
[2018-09-16 23:21] LABS: ABNORMAL IP MESSAGE 1; BASOPHILS % 0.4 % (0.0-2.0); EOSINOPHILS % 0.4 % (0.0-7.0); HEMATOCRIT 32.9 % (37.0-47.0); HEMOGLOBIN 11.1 g/dl (12.0-16.0); LYMPHOCYTES # 0.4 10^3/ul (0.8-2.9); LYMPHOCYTES % 4.1 % (15.0-51.0); MEAN CORPUSCULAR HEMOGLOBIN 32.6 pg (29.0-33.0); MEAN CORPUSCULAR HGB CONC 33.7 g/dl (32.0-37.0); MEAN CORPUSCULAR VOLUME 96.5 fl (82.0-101.0); MEAN PLATELET VOLUME 8.5 fl (7.4-10.4); MONOCYTE # 0.8 10^3/ul (0.3-0.9); MONOCYTES % 8.3 % (0.0-11.0); NEUTROPHIL # 7.8 10^3/ul (1.6-7.5); NEUTROPHILS % 86.5 % (39.0-77.0); PLATELET COUNT 241 10^3/UL (140-415); RED BLOOD COUNT 3.41 10^6/ul (4.20-5.40); RED CELL DISTRIBUTION WIDTH 14.6 % (11.5-14.5)
[2018-09-16 23:22] LABS: POSITIVE DIFF @See below
[2018-09-16 23:40] LABS: ALANINE AMINOTRANSFERASE 25 IU/L (13-69); ALBUMIN 3.4 g/dl (3.3-4.9); ALBUMIN/GLOBULIN RATIO 1.25; ALKALINE PHOSPHATASE 286 IU/L (42-121); ANION GAP 6 (5-13); ASPARTATE AMINO TRANSFERASE 35 IU/L (15-46); BLOOD UREA NITROGEN 18 mg/dl (7-20); CALCIUM 8.6 mg/dl (8.4-10.2); CARBON DIOXIDE 28 mmol/L (21-31); CHLORIDE 102 mmol/L (97-110); CREATININE 0.37 mg/dl (0.44-1.00); Estimated GFR > 60 mL/min (>60); GLUCOSE 92 mg/dl (70-220); INR 1.02; POTASSIUM 3.4 mmol/L (3.5-5.1); PROTIME 13.5 Sec (11.9-14.9); PT RATIO 1.1; SODIUM 136 mmol/L (135-144); TOTAL PROTEIN 6.1 g/dl (6.1-8.1)
[2018-09-17] MEDS ORDERED: ALBUTEROL/IPRATROPIUM (NEB) 3 ML AMP HHN
[2018-09-17] MEDS ORDERED: NACL 0.9% 3 ML SYG IV
[2018-09-17] MEDS ORDERED: ONDANSETRON 4 MG INJ IV
[2018-09-17] MEDS ORDERED: ACETAMINOPHEN 325 MG TAB PO
[2018-09-17] MEDS: ONDANSETRON 4 MG INJ IV (00:06)
[2018-09-17] MEDS: METHYLDOPA 250 MG TAB PO ×2 (00:09→23:09)
[2018-09-17] MEDS: HYDROmorphONE 0.5 MG/0.5 ML SYG IV (00:17)
[2018-09-17 00:48] LABS: TROPONIN-I 0.049 ng/ml (0.000-0.120)
[2018-09-17] MEDS: BACITRACIN 0.9 GM OINT TOP (01:00)
[2018-09-17] MEDS: DEXTROSE 5%-0.45% NACL 1,000 ML IV ×3 (02:14→19:46)
[2018-09-17] MEDS: HYDROCODONE/APAP (5/325) TAB PO ×3 (02:14→22:14)
[2018-09-17] MEDS: carBAMAZepine (XR) 200 MG TABSR PO ×3 (09:12→22:09)
[2018-09-17] MEDS: HEPARIN 5,000 UNIT/1 ML VIAL SC ×2 (09:15→22:19)
[2018-09-17] MEDS: LEVETIRACETAM 500 MG TAB PO ×2 (12:36→22:08)
[2018-09-17 13:50] LABS: ADD MAN DIFF? NO
[2018-09-17 13:52] LABS: ABNORMAL IP MESSAGE 1; BASOPHILS % 0.5 % (0.0-2.0); EOSINOPHILS % 0.3 % (0.0-7.0); HEMATOCRIT 31.8 % (37.0-47.0); HEMOGLOBIN 10.7 g/dl (12.0-16.0); LYMPHOCYTES # 0.4 10^3/ul (0.8-2.9); LYMPHOCYTES % 7.3 % (15.0-51.0); MEAN CORPUSCULAR HEMOGLOBIN 32.5 pg (29.0-33.0); MEAN CORPUSCULAR HGB CONC 33.6 g/dl (32.0-37.0); MEAN CORPUSCULAR VOLUME 96.7 fl (82.0-101.0); MONOCYTE # 0.6 10^3/ul (0.3-0.9); MONOCYTES % 9.9 % (0.0-11.0); NEUTROPHIL # 4.7 10^3/ul (1.6-7.5); NEUTROPHILS % 81.8 % (39.0-77.0); PLATELET COUNT 245 10^3/UL (140-415); RED BLOOD COUNT 3.29 10^6/ul (4.20-5.40); RED CELL DISTRIBUTION WIDTH 14.6 % (11.5-14.5)
[2018-09-17 13:52] LABS: WHITE BLOOD COUNT 5.8 10^3/ul (4.8-10.8)
[2018-09-17 14:07] LABS: POSITIVE DIFF @See below
[2018-09-17 14:26] LABS: ALANINE AMINOTRANSFERASE 24 IU/L (13-69); ALBUMIN 3.2 g/dl (3.3-4.9); ALBUMIN/GLOBULIN RATIO 1.23; ALKALINE PHOSPHATASE 266 IU/L (42-121); ANION GAP 7 (5-13); ASPARTATE AMINO TRANSFERASE 33 IU/L (15-46); BILIRUBIN,INDIRECT 0.2 mg/dl (0-1.1); BILIRUBIN,TOTAL 0.2 mg/dl (0.2-1.3); BLOOD UREA NITROGEN 14 mg/dl (7-20); CALCIUM 8.4 mg/dl (8.4-10.2); CARBON DIOXIDE 29 mmol/L (21-31); CHLORIDE 99 mmol/L (97-110); CREATININE 0.41 mg/dl (0.44-1.00); Estimated GFR > 60 mL/min (>60); GLUCOSE 102 mg/dl (70-220); MAGNESIUM 1.8 mg/dl (1.7-2.5); PHOSPHORUS 3.5 mg/dl (2.5-4.9); POTASSIUM 3.1 mmol/L (3.5-5.1); SODIUM 135 mmol/L (135-144); TOTAL PROTEIN 5.8 g/dl (6.1-8.1)
[2018-09-17] MEDS ORDERED: METHYLDOPA 500 MG TAB PO ×2 (21:00)
[2018-09-17] MEDS: LISINOPRIL 5 MG TAB PO (22:24)
[2018-09-18] MEDS: DEXTROSE 5%-0.45% NACL 1,000 ML IV ×3 (01:10→21:58)
[2018-09-18] MEDS: HYDROCODONE/APAP (5/325) TAB PO ×4 (04:36→22:32)
[2018-09-18 05:21] LABS: ADD MAN DIFF? NO
[2018-09-18 05:25] LABS: BASOPHILS % 0.4 % (0.0-2.0); EOSINOPHILS % 0.8 % (0.0-7.0); HEMATOCRIT 30.5 % (37.0-47.0); HEMOGLOBIN 10.3 g/dl (12.0-16.0); LYMPHOCYTES # 0.7 10^3/ul (0.8-2.9); LYMPHOCYTES % 13.1 % (15.0-51.0); MEAN CORPUSCULAR HEMOGLOBIN 32.4 pg (29.0-33.0); MEAN CORPUSCULAR HGB CONC 33.8 g/dl (32.0-37.0); MEAN CORPUSCULAR VOLUME 95.9 fl (82.0-101.0); MEAN PLATELET VOLUME 9.2 fl (7.4-10.4); MONOCYTE # 0.7 10^3/ul (0.3-0.9); MONOCYTES % 13.7 % (0.0-11.0); NEUTROPHIL # 3.8 10^3/ul (1.6-7.5); NEUTROPHILS % 71.8 % (39.0-77.0); PLATELET COUNT 235 10^3/UL (140-415); RED BLOOD COUNT 3.18 10^6/ul (4.20-5.40); RED CELL DISTRIBUTION WIDTH 14.5 % (11.5-14.5)
[2018-09-18 05:25] LABS: WHITE BLOOD COUNT 5.3 10^3/ul (4.8-10.8)
[2018-09-18 05:59] LABS: ANION GAP 5 (5-13); BLOOD UREA NITROGEN 11 mg/dl (7-20); CALCIUM 7.9 mg/dl (8.4-10.2); CARBON DIOXIDE 28 mmol/L (21-31); CHLORIDE 100 mmol/L (97-110); Estimated GFR > 60 mL/min (>60); GLUCOSE 101 mg/dl (70-220); POTASSIUM 3.2 mmol/L (3.5-5.1); SODIUM 133 mmol/L (135-144)
[2018-09-18] MEDS: METHYLDOPA 250 MG TAB PO ×2 (08:35→20:17)
[2018-09-18] MEDS: carBAMAZepine (XR) 200 MG TABSR PO ×3 (08:35→20:16)
[2018-09-18] MEDS: AMLODIPINE 10 MG TAB PO (08:36)
[2018-09-18] MEDS: LEVETIRACETAM 500 MG TAB PO ×2 (08:36→20:17)
[2018-09-18] MEDS ORDERED: LISINOPRIL 20 MG TAB PO (09:00)
[2018-09-18] MEDS: HEPARIN 5,000 UNIT/1 ML VIAL SC ×2 (09:00→21:00)
[2018-09-18] MEDS: POTASSIUM CHLORIDE (SR) 20 MEQ TAB PO (18:27)
[2018-09-18] MEDS: LISINOPRIL 20 MG TAB PO (20:18)
[2018-09-19] MEDS ORDERED: MIDAZOLAM 1 MG/ML 2 ML INJ (08:28)
[2018-09-19] MEDS ORDERED: PROPOFOL 20 ML (08:28)
[2018-09-19] MEDS ORDERED: LIDOCAINE 1% (MDV) 20 ML INJ (08:29)
[2018-09-19] MEDS ORDERED: CEFAZOLIN 1 GM INJ (08:39)
[2018-09-19] MEDS ORDERED: PHENYLephrine (100 MCG/ML) 10ML SYG (08:40)
[2018-09-19] MEDS ORDERED: ONDANSETRON 4 MG INJ (08:40)
[2018-09-19] MEDS: HEPARIN 5,000 UNIT/1 ML VIAL SC ×2 (09:00→21:02)
[2018-09-19] MEDS ORDERED: HYDROmorphONE 1 MG/5 ML IV SYRINGE IV ×2 (09:30→10:42)
[2018-09-19] MEDS ORDERED: NACL 0.9% 3 ML SYG IV (09:30)
[2018-09-19] MEDS ORDERED: LABETALOL HCL 20MG INJ IV (09:30)
[2018-09-19] MEDS ORDERED: hydrALAzine 20 MG INJ (09:40)
[2018-09-19] MEDS: hydrALAzine 20 MG INJ IV (10:13)
[2018-09-19] MEDS: HYDROmorphONE 1 MG/5 ML IV SYRINGE IV (10:49)
[2018-09-19] MEDS: DEXTROSE 5%-0.45% NACL 1,000 ML IV ×2 (11:15→21:46)
[2018-09-19] MEDS: LEVETIRACETAM 500 MG TAB PO ×2 (11:25→20:58)
[2018-09-19] MEDS: carBAMAZepine (XR) 200 MG TABSR PO ×3 (11:25→20:58)
[2018-09-19] MEDS: METHYLDOPA 250 MG TAB PO ×2 (11:26→20:58)
[2018-09-19] MEDS: AMLODIPINE 10 MG TAB PO (11:26)
[2018-09-19 14:47] LABS: ADD MAN DIFF? NO
[2018-09-19 14:53] LABS: BASOPHILS % 0.5 % (0.0-2.0); EOSINOPHILS # 0.1 10^3/ul (0.0-0.5); EOSINOPHILS % 1.3 % (0.0-7.0); HEMATOCRIT 28.3 % (37.0-47.0); HEMOGLOBIN 9.6 g/dl (12.0-16.0); LYMPHOCYTES # 0.7 10^3/ul (0.8-2.9); LYMPHOCYTES % 10.9 % (15.0-51.0); MEAN CORPUSCULAR HGB CONC 33.9 g/dl (32.0-37.0); MEAN CORPUSCULAR VOLUME 97.3 fl (82.0-101.0); MEAN PLATELET VOLUME 8.9 fl (7.4-10.4); MONOCYTE # 0.6 10^3/ul (0.3-0.9); MONOCYTES % 10.7 % (0.0-11.0); NEUTROPHIL # 4.6 10^3/ul (1.6-7.5); NEUTROPHILS % 76.3 % (39.0-77.0); PLATELET COUNT 203 10^3/UL (140-415); RED BLOOD COUNT 2.91 10^6/ul (4.20-5.40); RED CELL DISTRIBUTION WIDTH 14.6 % (11.5-14.5)
[2018-09-19 15:09] LABS: ANION GAP 4 (5-13); BLOOD UREA NITROGEN 5 mg/dl (7-20); CALCIUM 7.5 mg/dl (8.4-10.2); CARBON DIOXIDE 28 mmol/L (21-31); CHLORIDE 100 mmol/L (97-110); CREATININE 0.35 mg/dl (0.44-1.00); Estimated GFR > 60 mL/min (>60); GLUCOSE 183 mg/dl (70-220); POTASSIUM 3.5 mmol/L (3.5-5.1); SODIUM 132 mmol/L (135-144)
[2018-09-19] MEDS: HYDROCODONE/APAP (5/325) TAB PO (19:38)
[2018-09-19] MEDS: LISINOPRIL 20 MG TAB PO (20:57)
[2018-09-20] MEDS: HYDROCODONE/APAP (5/325) TAB PO ×3 (05:25→18:46)
[2018-09-20 05:52] LABS: ADD MAN DIFF? NO
[2018-09-20 06:06] LABS: WHITE BLOOD COUNT 4.4 10^3/ul (4.8-10.8)
[2018-09-20 06:06] LABS: BASOPHILS % 0.7 % (0.0-2.0); EOSINOPHILS # 0.1 10^3/ul (0.0-0.5); EOSINOPHILS % 2.7 % (0.0-7.0); HEMATOCRIT 28.8 % (37.0-47.0); HEMOGLOBIN 9.6 g/dl (12.0-16.0); LYMPHOCYTES # 0.7 10^3/ul (0.8-2.9); LYMPHOCYTES % 15.9 % (15.0-51.0); MEAN CORPUSCULAR HEMOGLOBIN 32.3 pg (29.0-33.0); MEAN CORPUSCULAR HGB CONC 33.3 g/dl (32.0-37.0); MEAN PLATELET VOLUME 9.6 fl (7.4-10.4); MONOCYTE # 0.6 10^3/ul (0.3-0.9); MONOCYTES % 14.4 % (0.0-11.0); NEUTROPHIL # 2.9 10^3/ul (1.6-7.5); NEUTROPHILS % 66.1 % (39.0-77.0); PLATELET COUNT 206 10^3/UL (140-415); RED BLOOD COUNT 2.97 10^6/ul (4.20-5.40); RED CELL DISTRIBUTION WIDTH 14.9 % (11.5-14.5)
[2018-09-20 06:32] LABS: ANION GAP 5 (5-13); BLOOD UREA NITROGEN 8 mg/dl (7-20); CALCIUM 7.9 mg/dl (8.4-10.2); CARBON DIOXIDE 27 mmol/L (21-31); CHLORIDE 101 mmol/L (97-110); CREATININE 0.41 mg/dl (0.44-1.00); Estimated GFR > 60 mL/min (>60); GLUCOSE 87 mg/dl (70-220); POTASSIUM 3.7 mmol/L (3.5-5.1); SODIUM 133 mmol/L (135-144)
[2018-09-20] MEDS: oxyCODONE 5 MG TAB PO (09:14)
[2018-09-20] MEDS: AMLODIPINE 10 MG TAB PO (09:15)
[2018-09-20] MEDS: carBAMAZepine (XR) 200 MG TABSR PO ×3 (09:16→21:29)
[2018-09-20] MEDS: METHYLDOPA 250 MG TAB PO ×2 (09:16→21:30)
[2018-09-20] MEDS: LEVETIRACETAM 500 MG TAB PO ×2 (09:17→21:30)
[2018-09-20] MEDS: ENOXAPARIN 40 MG/0.4 ML SYG SC (09:18)
[2018-09-20] MEDS: LORATADINE 10 MG TAB PO (13:38)
[2018-09-20] MEDS: LISINOPRIL 20 MG TAB PO (21:30)
[2018-09-21 05:40] LABS: ADD MAN DIFF? NO
[2018-09-21 05:56] LABS: BASOPHIL # 0.1 10^3/ul (0.0-0.1); BASOPHILS % 1.1 % (0.0-2.0); EOSINOPHILS # 0.1 10^3/ul (0.0-0.5); HEMATOCRIT 29.6 % (37.0-47.0); HEMOGLOBIN 10.1 g/dl (12.0-16.0); LYMPHOCYTES # 0.7 10^3/ul (0.8-2.9); LYMPHOCYTES % 14.7 % (15.0-51.0); MEAN CORPUSCULAR HEMOGLOBIN 33.3 pg (29.0-33.0); MEAN CORPUSCULAR HGB CONC 34.1 g/dl (32.0-37.0); MEAN CORPUSCULAR VOLUME 97.7 fl (82.0-101.0); MEAN PLATELET VOLUME 9.5 fl (7.4-10.4); MONOCYTE # 0.7 10^3/ul (0.3-0.9); MONOCYTES % 15.3 % (0.0-11.0); NEUTROPHILS % 65.5 % (39.0-77.0); PLATELET COUNT 214 10^3/UL (140-415); RED BLOOD COUNT 3.03 10^6/ul (4.20-5.40); RED CELL DISTRIBUTION WIDTH 14.7 % (11.5-14.5)
[2018-09-21 05:56] LABS: WHITE BLOOD COUNT 4.6 10^3/ul (4.8-10.8)
[2018-09-21 06:23] LABS: ANION GAP 4 (5-13); BLOOD UREA NITROGEN 15 mg/dl (7-20); CARBON DIOXIDE 28 mmol/L (21-31); CHLORIDE 102 mmol/L (97-110); CREATININE 0.46 mg/dl (0.44-1.00); Estimated GFR > 60 mL/min (>60); GLUCOSE 94 mg/dl (70-220); POTASSIUM 3.9 mmol/L (3.5-5.1); SODIUM 134 mmol/L (135-144)
[2018-09-21] MEDS: LEVETIRACETAM 500 MG TAB PO ×2 (08:03→20:22)
[2018-09-21] MEDS: METHYLDOPA 250 MG TAB PO ×2 (08:04→20:24)
[2018-09-21] MEDS: LORATADINE 10 MG TAB PO (08:05)
[2018-09-21] MEDS: AMLODIPINE 10 MG TAB PO (08:05)
[2018-09-21] MEDS: carBAMAZepine (XR) 200 MG TABSR PO ×3 (08:05→20:22)
[2018-09-21] MEDS: HYDROCODONE/APAP (5/325) TAB PO ×3 (08:06→20:23)
[2018-09-21] MEDS: ENOXAPARIN 40 MG/0.4 ML SYG SC (08:07)
[2018-09-21] MEDS ORDERED: AMLODIPINE 10 MG TAB PO (14:00)
[2018-09-21] MEDS: LISINOPRIL 20 MG TAB PO (20:24)
[2018-09-21] MEDS ORDERED: METHYLDOPA 500 MG TAB PO (21:00)
[2018-09-21] MEDS: HYDROXYCHLOROQUINE 200 MG TAB PO (21:34)
[2018-09-22] MEDS: oxyCODONE 5 MG TAB PO ×2 (06:35→12:12)
[2018-09-22] MEDS: carBAMAZepine (XR) 200 MG TABSR PO ×3 (08:41→20:28)
[2018-09-22] MEDS: METHYLDOPA 250 MG TAB PO ×3 (08:42→20:29)
[2018-09-22] MEDS: LEVETIRACETAM 500 MG TAB PO ×2 (08:42→20:32)
[2018-09-22] MEDS: HYDROXYCHLOROQUINE 200 MG TAB PO ×2 (08:43→20:34)
[2018-09-22] MEDS: AMLODIPINE 10 MG TAB PO (08:43)
[2018-09-22] MEDS: ENOXAPARIN 40 MG/0.4 ML SYG SC (08:47)
[2018-09-22] MEDS: HYDROCODONE/APAP (5/325) TAB PO ×2 (08:48→20:35)
[2018-09-22] MEDS: IBUPROFEN 800 MG TAB PO (18:10)
[2018-09-22] MEDS: CALCIUM/VITAMIN D (500/200) TAB PO (20:29)
[2018-09-22] MEDS: LISINOPRIL 20 MG TAB PO (20:31)
[2018-09-23] MEDS: LEVETIRACETAM 500 MG TAB PO ×2 (08:34→20:44)
[2018-09-23] MEDS: carBAMAZepine (XR) 200 MG TABSR PO ×3 (08:34→20:45)
[2018-09-23] MEDS: HYDROXYCHLOROQUINE 200 MG TAB PO ×2 (08:35→20:47)
[2018-09-23] MEDS: CALCIUM/VITAMIN D (500/200) TAB PO ×2 (08:36→20:46)
[2018-09-23] MEDS: METHYLDOPA 250 MG TAB PO ×3 (08:36→20:47)
[2018-09-23] MEDS: AMLODIPINE 10 MG TAB PO (08:37)
[2018-09-23] MEDS: ENOXAPARIN 40 MG/0.4 ML SYG SC (08:39)
[2018-09-23] MEDS: HYDROCODONE/APAP (5/325) TAB PO ×4 (08:42→22:18)
[2018-09-23] MEDS: oxyCODONE 5 MG TAB PO (19:37)
[2018-09-23] MEDS: LISINOPRIL 20 MG TAB PO (21:00)
[2018-09-24] MEDS: oxyCODONE 5 MG TAB PO (02:06)
[2018-09-24] MEDS: HYDROCODONE/APAP (5/325) TAB PO ×3 (05:43→20:07)
[2018-09-24] MEDS: carBAMAZepine (XR) 200 MG TABSR PO ×3 (08:53→20:25)
[2018-09-24] MEDS: CALCIUM/VITAMIN D (500/200) TAB PO ×2 (08:54→20:20)
[2018-09-24] MEDS: HYDROXYCHLOROQUINE 200 MG TAB PO ×2 (08:54→20:22)
[2018-09-24] MEDS: AMLODIPINE 10 MG TAB PO (08:54)
[2018-09-24] MEDS: LEVETIRACETAM 500 MG TAB PO ×2 (08:55→20:22)
[2018-09-24] MEDS: METHYLDOPA 250 MG TAB PO ×3 (08:55→20:20)
[2018-09-24] MEDS: ENOXAPARIN 40 MG/0.4 ML SYG SC (08:58)
[2018-09-24] MEDS: LISINOPRIL 20 MG TAB PO (20:22)
[2018-09-25] MEDS: HYDROCODONE/APAP (5/325) TAB PO ×3 (05:07→16:55)
[2018-09-25 06:15] LABS: ADD MAN DIFF? NO
[2018-09-25 06:23] LABS: WHITE BLOOD COUNT 4.2 10^3/ul (4.8-10.8)
[2018-09-25 06:23] LABS: EOSINOPHILS # 0.1 10^3/ul (0.0-0.5); EOSINOPHILS % 2.4 % (0.0-7.0); HEMATOCRIT 29.8 % (37.0-47.0); HEMOGLOBIN 10.3 g/dl (12.0-16.0); LYMPHOCYTES # 0.9 10^3/ul (0.8-2.9); LYMPHOCYTES % 20.7 % (15.0-51.0); MEAN CORPUSCULAR HEMOGLOBIN 33.3 pg (29.0-33.0); MEAN CORPUSCULAR HGB CONC 34.6 g/dl (32.0-37.0); MEAN CORPUSCULAR VOLUME 96.4 fl (82.0-101.0); MEAN PLATELET VOLUME 9.3 fl (7.4-10.4); MONOCYTE # 0.7 10^3/ul (0.3-0.9); MONOCYTES % 16.2 % (0.0-11.0); NEUTROPHIL # 2.5 10^3/ul (1.6-7.5); NEUTROPHILS % 59.5 % (39.0-77.0); PLATELET COUNT 284 10^3/UL (140-415); RED BLOOD COUNT 3.09 10^6/ul (4.20-5.40); RED CELL DISTRIBUTION WIDTH 14.6 % (11.5-14.5)
[2018-09-25 06:51] LABS: ANION GAP 7 (5-13); BLOOD UREA NITROGEN 19 mg/dl (7-20); CALCIUM 8.3 mg/dl (8.4-10.2); CARBON DIOXIDE 28 mmol/L (21-31); CHLORIDE 96 mmol/L (97-110); CREATININE 0.49 mg/dl (0.44-1.00); Estimated GFR > 60 mL/min (>60); GLUCOSE 86 mg/dl (70-220); POTASSIUM 4.6 mmol/L (3.5-5.1); SODIUM 131 mmol/L (135-144)
[2018-09-25] MEDS: CALCIUM/VITAMIN D (500/200) TAB PO (09:01)
[2018-09-25] MEDS: LEVETIRACETAM 500 MG TAB PO (09:02)
[2018-09-25] MEDS: AMLODIPINE 10 MG TAB PO (09:03)
[2018-09-25] MEDS: carBAMAZepine (XR) 200 MG TABSR PO ×2 (09:04→13:32)
[2018-09-25] MEDS: METHYLDOPA 250 MG TAB PO ×2 (09:04→13:25)
[2018-09-25] MEDS: HYDROXYCHLOROQUINE 200 MG TAB PO (09:05)
[2018-09-25] MEDS: ENOXAPARIN 40 MG/0.4 ML SYG SC (09:08)
[2018-09-25] MEDS: IBUPROFEN 800 MG TAB PO (11:38)
== END 2018-09-25 17:45 | disposition home health service (06) | DRG 560 ==
LOC: MS1 23:12 → FTE 18:10
PROC: 0SWEXJZ Revision of Synthetic Substitute in Left Hip Joint, Acetabular Surface, External Approach (ICD-10-PCS; principal; 2018-09-19 08:00)
DX: T84.021A Dislocation of internal left hip prosthesis, initial encounter (principal); S32.501A Unspecified fracture of right pubis, initial encounter for closed fracture; I50.30 Unspecified diastolic (congestive) heart failure; M06.9 Rheumatoid arthritis, unspecified; G40.909 Epilepsy, unspecified, not intractable, without status epilepticus; M54.5 Low back pain; Z91.81 History of falling; W19.XXXA Unspecified fall, initial encounter; Z96.642 Presence of left artificial hip joint; J44.9 Chronic obstructive pulmonary disease, unspecified; E87.6 Hypokalemia; F17.200 Nicotine dependence, unspecified, uncomplicated; I11.0 Hypertensive heart disease with heart failure; I25.10 Atherosclerotic heart disease of native coronary artery without angina pectoris; E78.5 Hyperlipidemia, unspecified
CPT/HCPCS: 71045; 72170; 72192; 73500; 73510; 73550; 73590; 80048; 80053; 82962; 83735; 84100; 84484; 85025; 85610; 93005; 93306; 94770; 96372; 96374; 96375; 97110; 97116; 97161; 97530; 99285-25